=== PATIENT | female | born 2000 | race Native Hawaiian/Other Pacific Islander ===

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

== ENCOUNTER 2018-07-11 13:12 | Emergency (ER) | payer OTHER ==
[~2018-07-11] VITALS: Ht 160 cm; Wt 68.0 kg
[2018-07-11 16:00] VITALS: BP 121/81; TEMP 97.7
== END 2018-07-11 16:00 | disposition home or self-care (01) ==
LOC: ED 13:12
DX: D17.9 Benign lipomatous neoplasm, unspecified (principal)
CPT/HCPCS: 81000; 81025; 99283

== ENCOUNTER 2019-11-12 12:06 | Emergency (ER) | payer OTHER ==
[~2019-11-12] VITALS: Ht 160 cm; Wt 86.2 kg
[2019-11-12 12:06] VITALS: BP 123/76; TEMP 98.9
[2019-11-12] MEDS ORDERED: EUTHYROX50 MCG PO (12:23)
[2019-11-12] MEDS ORDERED: METF500T PO (12:23)
== END 2019-11-12 13:27 | disposition home or self-care (01) ==
LOC: ED 12:17
PROC: 2W3QX1Z Immobilization of Right Lower Leg using Splint (ICD-10-PCS; principal; 2019-11-12)
DX: S82.64XA Nondisplaced fracture of lateral malleolus of right fibula, initial encounter for closed fracture (principal); W10.8XXA Fall (on) (from) other stairs and steps, initial encounter; Y92.89 Other specified places as the place of occurrence of the external cause
CPT/HCPCS: 96372; 99283; J1885

== ENCOUNTER 2019-12-04 13:54 | Outpatient (CLI) | payer OTHER ==
[~2019-12-04 13:54] MED LIST changes: +EUTHYROX50 MCG PO; +METF500T PO
== END 2019-12-04 19:24 | disposition home or self-care (01) ==
LOC: RAD 13:54
DX: M25.571 Pain in right ankle and joints of right foot (principal)

== ENCOUNTER 2019-12-18 13:51 | Outpatient (CLI) | payer OTHER | END 2019-12-18 23:37 | disposition home or self-care (01) | LOC: RAD 13:51 | DX: M25.571 Pain in right ankle and joints of right foot (principal) ==

== ENCOUNTER 2022-01-29 12:10 | Outpatient (CLI) | payer OTHER | END 2022-01-29 19:51 | disposition home or self-care (01) | LOC: RAD 12:10 | PROVIDERS: ATTEND Nurse Practitioner Family | DX: R10.32 Left lower quadrant pain (principal) ==